=== PATIENT | female | born 1980 | race American Indian/Alaskan Native ===

== ENCOUNTER 2018-05-05 19:28 | Emergency (ER) | payer OTHER ==
[2018-05-05 19:54] VITALS: BP 147/84
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
--- NOTE | 2018-05-05 21:07 | XRay Report ---
FINAL REPORT PROCEDURE: XR SPINE LUMBOSACRAL 2-3V TECHNIQUE: Lumbar spine radiographs, frontal and lateral views. CPT 65353 HISTORY: low back pain COMPARISON: No prior studies are available for comparison. FINDINGS: Alignment: Minimal degree levoscoliosis is noted Vertebral body heights/Disk spaces: Normal . Fracture(s): None . Facets: Normal . Bone mineralization: Normal . IMPRESSION: No acute abnormality
--- NOTE | 2018-05-05 21:09 | XRay Report ---
FINAL REPORT PROCEDURE: XR SPINE CERVICAL 2-3V TECHNIQUE: Cervical spine radiographs, AP, lateral, and open-mouth odontoid views. CPT 20242 HISTORY: neck pain COMPARISON: No prior studies are available for comparison. FINDINGS: Prevertebral soft tissues: Normal . Alignment: There is loss of cervical lordosis. Vertebral body heights/Disk spaces: Normal . Fracture(s): None . Facets: Normal . Bone mineralization: Normal . IMPRESSION: Straightening of the cervical spine is most likely secondary to spasm or positioning No acute fracture
[2018-05-05] MEDS ORDERED: NORCO 5/325 PO STA (22:53)
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
== END 2018-05-06 00:10 | disposition home or self-care (01) ==
LOC: ED 19:28
DX: M54.5 Low back pain (principal); M54.2 Cervicalgia; J45.909 Unspecified asthma, uncomplicated; F17.200 Nicotine dependence, unspecified, uncomplicated; Z90.89 Acquired absence of other organs; V89.2XXA Person injured in unspecified motor-vehicle accident, traffic, initial encounter; Y93.89 Activity, other specified; Y92.488 Other paved roadways as the place of occurrence of the external cause; Y99.8 Other external cause status
CPT/HCPCS: 72040; 72100; 99283